=== PATIENT | male | born 2000 | race Caucasian/White ===

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

== ENCOUNTER 2023-11-04 14:54 | Emergency (ER) | payer OTHER ==
[~2023-11-04] VITALS: Ht 188 cm; Wt 97.5 kg
[~2023-11-04 14:54] MED LIST changes: +Protonix40 MG PO
[2023-11-04 14:59] VITALS: BP 150/108
== END 2023-11-04 19:23 | disposition home or self-care (01) ==
LOC: ER 14:54
DX: S91.312A Laceration without foreign body, left foot, initial encounter (principal); F90.9 Attention-deficit hyperactivity disorder, unspecified type; F17.210 Nicotine dependence, cigarettes, uncomplicated; W29.3XXA Contact with powered garden and outdoor hand tools and machinery, initial encounter
CPT/HCPCS: 12002; 73620; 90471; 90714; 99283-25; A9270

== ENCOUNTER 2024-10-21 17:18 | Emergency (ER) | payer OTHER ==
[~2024-10-21] VITALS: Ht 185.4 cm; Wt 90.7 kg
[2024-10-21 19:15] VITALS: BP 144/95
== END 2024-10-21 19:22 | disposition home or self-care (01) ==
LOC: ER 17:18
DX: S16.1XXA Strain of muscle, fascia and tendon at neck level, initial encounter (principal); V43.52XA Car driver injured in collision with other type car in traffic accident, initial encounter; F17.200 Nicotine dependence, unspecified, uncomplicated; Z79.899 Other long term (current) drug therapy
CPT/HCPCS: 72040; 99284-25